=== PATIENT | female | born 1970 | race Two or more races ===

== ENCOUNTER 2017-10-19 12:26 | Outpatient (CLI) | payer OTHER ==
[~2017-10-19 12:26] MED LIST: AVAPRO150 MG PO; CLONAZEPAM0.25 MG/TA; DIOVAN320 MG; GILTUSS TR TAB1 EACH PO; TESSALON PERLE100 MG PO; ZITHROMAX200 MG PO; ZYRTEC10 MG PO
== END 2017-10-19 12:39 | disposition home or self-care (01) ==
LOC: MAMO-SONO 12:26
DX: N60.11 Diffuse cystic mastopathy of right breast (principal); N60.12 Diffuse cystic mastopathy of left breast; Z12.31 Encounter for screening mammogram for malignant neoplasm of breast

== ENCOUNTER 2018-01-14 10:01 | Outpatient (CLI) | payer OTHER ==
[~2018-01-14] VITALS: Ht 152.4 cm; Wt 56.7 kg
== END 2018-01-14 10:20 | disposition home or self-care (01) ==
LOC: OFIC 805 10:01
DX: M62.838 Other muscle spasm (principal); M26.69 Other specified disorders of temporomandibular joint; H92.03 Otalgia, bilateral

== ENCOUNTER 2019-09-19 11:29 | Outpatient (CLI) | payer OTHER | END 2019-09-19 11:33 | disposition home or self-care (01) | LOC: MAMO-SONO 11:29 | DX: Z12.31 Encounter for screening mammogram for malignant neoplasm of breast (principal); Z87.898 Personal history of other specified conditions; N60.11 Diffuse cystic mastopathy of right breast; N60.12 Diffuse cystic mastopathy of left breast ==

== ENCOUNTER 2020-11-23 12:25 | Outpatient (CLI) | payer OTHER | END 2020-11-23 12:37 | disposition home or self-care (01) | LOC: MAMO-SONO 12:25 | PROVIDERS: ATTEND Specialist | DX: N60.11 Diffuse cystic mastopathy of right breast (principal); N60.12 Diffuse cystic mastopathy of left breast; R10.31 Right lower quadrant pain; R10.32 Left lower quadrant pain ==

== ENCOUNTER 2023-06-15 11:16 | Outpatient (CLI) | payer OTHER | END 2023-06-15 11:24 | disposition home or self-care (01) | LOC: MAMO-SONO 11:16 | PROVIDERS: ATTEND Obstetrics & Gynecology | DX: N64.4 Mastodynia (principal) ==

== ENCOUNTER 2024-10-20 11:52 | Outpatient (CLI) | payer OTHER | END 2024-10-20 11:56 | disposition home or self-care (01) | LOC: MAMO-SONO 11:52 | PROVIDERS: ATTEND Obstetrics & Gynecology | DX: N64.4 Mastodynia (principal) ==

== ENCOUNTER 2025-04-03 11:58 | Outpatient (CLI) | payer OTHER | END 2025-04-03 12:06 | disposition home or self-care (01) | LOC: SONOGRAMA 11:58 | PROVIDERS: ATTEND Obstetrics & Gynecology | DX: R10.2 Pelvic and perineal pain (principal) ==